=== PATIENT | male | born 1995 | race African-American/Black ===

== ENCOUNTER 2017-06-03 06:19 | Emergency (ER) | payer BC, SELFPAY ==
[2017-06-03] MEDS ORDERED: Ondansetron ODT 4 MG TAB ONE (06:36)
[2017-06-03 07:16] LABS: Anion Gap 15 mmol/L (10-20); BUN (Urea Nitrogen) 11 mg/dL (8.9-20.6); Calc. Creatinine Clearance 0 mL/min (70-130); Calcium 9.4 mg/dL (7.8-10.44); Carbon Dioxide 23 mmol/L (22-29); Chloride 107 mmol/L (98-107); Estimated GFR-MDRD Greater than 90; Glucose 92 mg/dL (70-105); Potassium 3.9 mmol/L (3.5-5.1); Sodium 141 mmol/L (136-145)
--- NOTE | 2017-06-03 09:04 | CT ---
PRELIMINARY REPORT/[facility]/EMERGENTY AFTER-HOURS PROCEDURE CT Head Without Intravenous Contrast CLINICAL HISTORY: The patient is a 22 years male; Signs and symptoms; Altered mental status/memory loss; Confusion or d isorientation; Patient HX: Ed m23 for evaluation of ETOH abuse and possible substance abuse. Pt was a rrested for multiple disturbances and public intoxications. Pt was found in his car with vomit everyw here. Pt blew a 0.04 but longterm felt another substance was taken by pt as pt seemed more altered. TECHNIQUE: Axial computed tomography images of the head/brain without intravenous contrast. COMPARISON: No relevant prior studies available. FINDINGS: Brain: No intracranial hemorrhage. Normal jung-white differentiation with no edema, infarct, abnormal mass effect or midline shift. No extra-axial fluid collection. Ventricles: Unremarkable. No ventriculomegaly. Bones/joints: Unremarkable. No acute fracture. Soft tissues: Unremarkable. Sinuses: Unremarkable as visualized. No acute sinusitis. Mastoid air cells: Unremarkable as visualized. No mastoid effusion. IMPRESSION: Normal noncontrast head CT. Thank you for allowing us to participate in the care of your patient. Dictated and Authenticated by: Stevo Chiang MD 06/03/2017 7:26 AM Central Time ([place] & [place]) FINAL REPORT CT BRAIN: HISTORY: This 22-year-old presents with a history of mental status, memory loss, confusion. Ethanol and subst ance abuse. The patient has been arrested for multiple disturbances and public intoxication. FINDINGS: CT brain is obtained. Final report. Noncontrast-enhanced CT images of the brain are performed. I concur with the dictation from [facility]. No evidence of acute intracranial pathology is s een. POS: [facility]
== END 2017-06-03 07:49 ==
LOC: ERS 06:19
DX: Z02.89 Encounter for other administrative examinations (principal); F19.10 Other psychoactive substance abuse, uncomplicated
CPT/HCPCS: 36415; 70450; 80048; Q0162

== ENCOUNTER 2017-07-07 16:41 | Emergency (ER) | payer SELFPAY ==
[2017-07-07] MEDS ORDERED: Ondansetron ODT 4 MG TAB ONE (18:02)
[2017-07-07] MEDS ORDERED: Acetaminophen 500 MG TAB ONE (18:02)
[2017-07-07] MEDS ORDERED: Loperamide HCl 2 MG CAP ONE ×2 (18:03→18:10)
[2017-07-07 18:19] LABS: #Basophils 0.1 thou/uL (0.0-0.2); #Lymphocytes 0.7 thou/uL (1.20-3.40); #Monocytes 0.3 thou/uL (0.11-0.59); #Neutrophils 5.3 thou/uL (1.40-6.50); %Basophils 1.1 % (0.0-1.0); %Eosinophils 0.7 % (0.0-10.0); %Lymphocytes 10.5 % (21.0-51.0); %Neutrophils 82.8 % (42.0-75.0); Hemoglobin 14.4 g/dL (14.0-18.0); Mean Corpuscular HGB CONC 34.7 g/dL (32.0-36.0); Mean Corpuscular Hemoglobin 29.8 pg (27.0-31.0); Mean Corpuscular Volume 85.9 fl (80.0-94.0); Mean Platelet Volume 6.3 fL (7.4-10.4); Platelet Count 209 thou/uL (130-400); RBC Distribution Width 11.6 % (11.5-14.5); Red Blood Cell (RBC) Count 4.83 mill/uL (4.70-6.10); White Blood Cell (WBC) Count 6.4 thou/uL (4.8-10.8)
[2017-07-07 18:38] LABS: Bilirubin Small (Negative); Blood, Urine Negative (Negative); Clarity CLEAR (Clear); Glucose, Urine (Dipstick) Negative (Negative); Leukocyte Negative (Negative); Nitrite Negative (Negative); Protein, Urine (Dipstick) 30 mg/dL (Neg-Trace); Specific Gravity, Urine 1.035 (1.002-1.036); pH, Urine 6.5 (5.0-9.0)
[2017-07-07 18:41] LABS: Bacteria/HPF None Seen HPF (None Seen); Hyaline Casts/LPF 4-6 HYALINE CAST LPF (0-3 Hyaline); Pathc Cast-AUWi Flag 0.29 (0-2.49); RBC/HPF 0-3 HPF (0-3); Squamous Epithelial 0-3 HPF (0-3); WBC/HPF 0-3 HPF (0-3)
[2017-07-07 18:43] LABS: ALT (SGPT) 21 U/L (8-55); AST (SGOT) 15 U/L (5-34); Alkaline Phosphatase 60 U/L (40-150); Anion Gap 10 mmol/L (10-20); BUN (Urea Nitrogen) 13 mg/dL (8.9-20.6); Bilirubin, Total 0.4 mg/dL (0.2-1.2); Calc. Creatinine Clearance 0 mL/min (70-130); Carbon Dioxide 23 mmol/L (22-29); Chloride 104 mmol/L (98-107); Estimated GFR-MDRD Greater than 90; Globulin 2.7 g/dL (2.4-3.5); Glucose 92 mg/dL (70-105); Lipase 12 U/L (8-78); Potassium 3.7 mmol/L (3.5-5.1); Protein, Total 6.7 g/dL (6.0-8.3); Sodium 133 mmol/L (136-145)
[2017-07-07 19:03] LABS: HIV (1/2) Antibody/Antigen Non-Reactive (NonReactive); HIV 1/2 INDEX 0.11 S/CO (<1.00)
[2017-07-07] MEDS ORDERED: Ibuprofen 200 MG TAB ONE (19:32)
== END 2017-07-07 20:18 | disposition home or self-care (01) ==
LOC: ERS 16:41
DX: B34.9 Viral infection, unspecified (principal)
CPT/HCPCS: 36415; 80053; 81003; 81015; 83690; 85025; 87389; 99284; Q0162